=== PATIENT | female | born 1995 | race Caucasian/White ===

== ENCOUNTER 2016-06-01 21:16 | Emergency (ER) | payer SELFPAY ==
[~2016-06-01] VITALS: Ht 162.6 cm; Wt 64.8 kg
[~2016-06-01 21:16] MED LIST: NITR-58
[2016-06-01 21:33] VITALS: Ht 162.6 cm; Wt 64.8 kg
[2016-06-01] MEDS ORDERED: AMOX1TAB10 PO (23:54)
[2016-06-01] MEDS ORDERED: IBUP-1542 PO (23:54)
[2016-06-01] MEDS ORDERED: ALBU8.5H3 INH (23:54)
[2016-06-02] MEDS ORDERED: IBUPROFEN 600 MG TAB PO ONE
[2016-06-02 00:14] VITALS: BP 111/67; RESP 17
[2016-06-02] MEDS ORDERED: ACETAMINOPHEN 500 MG TAB PO STA (00:16)
--- NOTE | 2016-06-02 00:16 | ERD ---
ER Documentation Chief Complaint Date/Time DATE: 06/02/16 TIME: 00:13 Chief Complaint low back pain x 2 days denies injury, cough x 2 days HPI Patient is a 20-year-old female who presents to the emergency department with nasal congestion for 2 weeks and lower back pain 2 days. Patient states that she has been having yellow to green nasal congestion for greater than 2 weeks. Patient states that she does have "increased head pressure" especially behind her bilateral eyes. Patient states that she also has a dry cough. Patient denies any shortness of breath or wheezing. Patient reports tactile fevers. She states she last had Tylenol at 4 PM today. Patient denies taking any decongestants. Patient is she denies any nausea, vomiting, abdominal pain, pain with urination or hematuria.. Patient is also complaining of lower back pain 2 days. She denies any radiation of her pain. Patient denies any recent trauma or falls. Patient denies any saddle anesthesia, urinary incontinence, stool incontinence. She denies any recent travel. Patient does report sick contacts, mother. Patient did not receive the flu vaccine this year. Patient is currently on her menstrual period. Is requesting refill of her albuterol inhaler. ROS All systems reviewed and are negative except as per history of present illness. Medications Home Meds Active Scripts Albuterol Sulfate* (Proair HFA*) 8.5 Gm Hfa.aer.ad, 2 PUFF INH Q6H Y for WHEEZING AND SOB, #1 INHALER Prov:MICHELLE ENCINAS PA-C 06/01/16 Ibuprofen* (Motrin*) 600 Mg Tab, 600 MG PO Q6, #30 TAB Prov:MICHELLE ENCINAS PA-C 06/01/16 Amoxicillin/Potassium Clav (Amox-Clav 875-125 mg Tablet) 875-125 mg Tab, 1 TAB PO BID for 10 Days, #20 TAB Prov:MICHELLE ENCINAS PA-C 06/01/16 Reported Medications Nitrofurantoin Monohyd Macrocr (Macrobid) 100 Mg Capsr, 1 BID 10/25/12 Allergies Allergies: Coded Allergies: No Known Drug Allergies (Verified Allergy, 10/26/12) PMhx/Soc History of Surgery: No Anesthesia Reaction: No Hx Neurological Disorder: No Hx Respiratory Disorders: Yes (CHILDHOOD ASTHMA YRS AGO.) Hx Cardiac Disorders: No Hx Psychiatric Problems: No Hx Miscellaneous Medical Probl: Yes (RECENTLY SEEN F0R UTI) Hx Alcohol Use: No Hx Substance Use: No Hx Tobacco Use: No Smoking Status: Never smoker FmHx Family History: No diabetes Physical Exam Vitals Vital Signs Date Time Temp Pulse Resp B/P Pulse Ox O2 Delivery O2 Flow Rate FiO2 06/02/16 01:07 100.3 99 06/02/16 00:14 102.9 108 17 111/67 97 Room Air 06/01/16 21:33 100.2 121 20 117/59 98 Physical Exam GENERAL: Well-developed, well-nourished female. Appears in no acute distress. HEAD: Normocephalic, atraumatic. No deformities or ecchymosis. EYE: Pupils equal, round, and reactive to light. EOMs intact. No conjunctival erythema. No eye discharge. Tender to palpation of maxillary and frontal sinuses bilaterally. Patient reports increased head pressure upon bending down. ENT: External ear without any masses or tenderness. Auditory canals clear bilaterally. TM visualized bilaterally, non-erythematous, non-bulging. Nasal mucosa pink with no discharge. Oropharynx is pink without any tonsillar erythema or exudates. No uvula deviation. No kissing tonsils. Nontender to palpation of bilateral mastoid processes NECK: Supple. Normal ROM of the neck. LUNG: Clear to auscultation bilaterally. No rhonchi, wheezing, rales or coarse breath sounds. HEART: Regular rate and rhythm. No murmurs, rubs or gallops. ABDOMEN: Soft, nontender, and nondistended. Positive bowel sounds in all four quadrants. No rebound tenderness, no guarding. (-) McBurney's point tenderness. No CVA tenderness. BACK: No midline tenderness. EXTREMITES: Equal pulses bilaterally. No peripheral clubbing, cyanosis or edema. No unilateral leg swelling. NEUROLOGIC: Alert and oriented to person, place and time. Moving all four extremities. 5/5 strength in all extremities. Normal speech. Steady gait. Negative Brudzinski sign. Negative Kernig sign. SKIN: Normal color. Warm and dry. No rashes or lesions. Results 24 hrs Current Medications Medications (Trade) Dose Ordered Sig/Brittany Route PRN Reason Start Time Stop Time Status Last Admin Dose Admin Ibuprofen (Motrin) 600 mg ONCE ONCE PO 06/02/16 00:00 06/02/16 00:01 DC 06/01/16 23:42 Acetaminophen (Tylenol Tab) 1,000 mg ONCE STAT PO 06/02/16 00:16 06/02/16 00:17 DC 06/02/16 00:20 Procedures/MDM MEDICAL DECISION MAKING: This is a 20-year-old female who presents with nasal congestion, tactile fevers , dry cough, lower back pain. Patient states her nasal congestion has been ongoing for 2 weeks. Patient states that her back pain started 2 days ago. Patient denies any trauma or falls. Patient denies any saddle anesthesia, urinary incontinence, stool incontinence.. Vital signs were reviewed. Patient was afebrile on initial presentation. Prior to discharge patient's temperature was noted to be elevated. Patient was given Tylenol and Motrin during the ED course which did down trend her temperature. Patient was not hypoxic. ENT exam revealed bilateral tenderness in the frontal and maxillary sinuses. Patient reported increased pain upon bending down. Given these findings, the patient's presentation is most consistent with sinusitis and acute lower back pain. I have a much lower clinical concern for pneumonia, meningitis, otitis externa, acute otitis media, strep pharyngitis, epiglottitis or peritonsillar abscess. Low suspicion for cauda equina syndrome, spinal fractures, epidural abscess, spinal metastasis, osteomyelitis, DJD, sciatica, nephrolithiasis. It is possible that the patient has influenza as well, however at this time I will given that the patient has had nasal congestion for over 2 weeks, I will treat the patient for a bacterial sinusitis. PRESCRIPTIONS: Ibuprofen, albuterol, Augmentin DISCHARGE: At this time, patient is stable for discharge and outpatient management. Supportive therapies such as OTC throat lozenges, salt water gurgles, popsicles and jello discussed. I have instructed the patient to follow-up with his/her primary care physician in 1-2 days. I have instructed the patient to promptly return to the ER for any new or worsening symptoms including increased pain, swelling, fever, nausea, vomiting, weakness or difficulty breathing. The patient and/or family expressed understanding of and agreement with this plan. All questions were answered. Home care instructions were provided. Departure Diagnosis: Primary Impression: Sinusitis Sinusitis location: maxillary Chronicity: acute Recurrence: not specified as recurrent Qualified Code: J01.00 - Acute maxillary sinusitis, recurrence not specified Additional Impression: Acute back pain Back pain location: low back pain Back pain laterality: bilateral Sciatica presence: unspecified whether sciatica present Qualified Code: M54.5 - Acute bilateral low back pain, with sciatica presence unspecified Condition: Stable Patient Instructions: Sinusitis, Abx Tx Referrals: [facility] YOU HAVE RECEIVED A MEDICAL SCREENING EXAM AND THE RESULTS INDICATE THAT YOU DO NOT HAVE A CONDITION THAT REQUIRES URGENT TREATMENT IN THE EMERGENCY DEPARTMENT. FURTHER EVALUATION AND TREATMENT OF YOUR CONDITION CAN WAIT UNTIL YOU ARE SEEN IN YOUR DOCTORS OFFICE WITHIN THE NEXT 1-2 DAYS. IT IS YOUR RESPONSIBILITY TO MAKE AN APPOINTMENT FOR FOLOW-UP CARE. IF YOU HAVE A PRIMARY DOCTOR --you should call your primary doctor and schedule an appointment IF YOU DO NOT HAVE A PRIMARY DOCTOR YOU CAN CALL OUR PHYSICIAN REFERRAL HOTLINE AT IF YOU CAN NOT AFFORD TO SEE A PHYSICIAN YOU CAN CHOSE FROM THE FOLLOWING [facility] [address] [facility]. [facility] [address] [facility] [address] [address] [facility] [facility] [address] [facility] [facility] [address] [facility]. [facility]. [address] [facility]. [facility] YOU HAVE RECEIVED A MEDICAL SCREENING EXAM AND THE RESULTS INDICATE THAT YOU DO NOT HAVE A CONDITION THAT REQUIRES URGENT TREATMENT IN THE EMERGENCY DEPARTMENT. FURTHER EVALUATION AND TREATMENT OF YOUR CONDITION CAN WAIT UNTIL YOU ARE SEEN IN YOUR DOCTORS OFFICE WITHIN THE NEXT 1-2 DAYS. IT IS YOUR RESPONSIBILITY TO MAKE AN APPOINTMENT FOR FOLOW-UP CARE. IF YOU HAVE A PRIMARY DOCTOR --you should call your primary doctor and schedule and appointment IF YOU DO NOT HAVE A PRIMARY DOCTOR YOU CAN CALL OUR PHYSICIAN REFERRAL HOTLINE AT . IF YOU CAN NOT AFFORD TO SEE A PHYSICIAN YOU CAN CHOSE FROM THE FOLLOWING [facility], [facility] INSTITUTIONS: [facility] [address] [place], [place] [id number] [place] [address] [address] [place] [address] [facility] + [facility] [address] [place] [address] [facility] Hours: Mon-Fri 9:00 AM - 5:00 PM Additional Instructions: Call your primary care doctor TOMORROW for an appointment during the next 1-2 days.See the doctor sooner or return here if your condition worsens before your appointment time. Comments Please note: Attending physician was NOT Dr. Gates. Attending physician was Dr. Rajendra De La Paz. MICHELLE ENCINAS PA-C Jun 02, 2016 00:16
[2016-06-02 01:07] VITALS: PULSE 99; TEMP 100.3
== END 2016-06-02 01:09 | disposition home or self-care (01) ==
LOC: FTE 21:16
DX: J01.00 Acute maxillary sinusitis, unspecified (principal); M54.5 Low back pain
CPT/HCPCS: 99284

== ENCOUNTER 2017-06-19 19:58 | Emergency (ER) | END 2017-06-19 21:39 | disposition home or self-care (01) ==